=== PATIENT | female | born 1965 | race Caucasian/White ===

== ENCOUNTER 2017-09-02 09:51 | Day surgery (SDC) | payer BC ==
--- NOTE | 2017-09-02 05:09 | History and Physical Report ---
DATE: 09/01/2017. CHIEF COMPLAINT AND HISTORY OF CHIEF COMPLAINT: This patient presents with a history of an intractable lumbar radiculopathy. She had a spinal cord stimulator trial on 07/21/2017 with 75 to 85 percent pain control. Due to the failure of all therapy and the success of the trial, she presents today for implantation of a permanent system. PAST MEDICAL HISTORY: Noncontributory. PAST SURGICAL HISTORY: None listed. EMPLOYMENT STATUS: Off work. MEDICATIONS ON ADMISSION: To be provided. ALLERGIES: Sulfa. SOCIAL HISTORY: Caffeine and cigarette smoking. FAMILY HISTORY: Noncontributory. REVIEW OF SYSTEMS: The patient seems appropriate and in no acute distress. The remainder of the systems review shows glasses, headaches, reflux, degenerative arthritis. PHYSICAL EXAMINATION: General: Height and weight are unavailable. Vital Signs: Unavailable. HEENT: Within normal limits. Lungs: Clear. Heart: Regular rate and rhythm. Abdomen: Nontender. Musculoskeletal: Examination of the musculoskeletal system shows the primary pain pattern to be across the back and extending toward the hips and legs. Sensory field function in the lower extremities is intact. There are no obvious deficits. Motor functionality in the lower extremities shows no significant weakness. Ambulation: No assistive device utilized. Neurologic: Cranial nerves are intact. IMPRESSION: LUMBAR RADICULOPATHY, ICD-10 CODE M54.16 AND M54.17. PLAN: The patient is here for implantation of a permanent spinal cord stimulator after the failure of other therapies and the success of a trial. The procedure will be considered outpatient, although an overnight stay will be evaluated. The potential risks, side effects, and complications have been carefully reviewed and discussed including spinal cord injury, nerve root injury , spinal headache, and failure of the therapy. The patient has consented and understands. JOB NUMBER: [id number] cc: Ashleigh Cheatham
[~2017-09-02 09:51] MED LIST: ACETAMINOPHEN 1,000 MG/100 ML BTL IV ONE; CEFAZOLIN 2 Gram 2 GM/50 ML BAG IVPB ONE; FAMOTIDINE 20MG TABLET PO ONE; MECLIZINE 25 MG TABLET PO ONE; METOCLOPRAMIDE 10 MG TABLET PO ONE
[2017-09-02] MEDS ORDERED: FLUMAZENIL 1MG/10ML VIAL IV ONE (09:52)
[2017-09-02] MEDS ORDERED: PROPOFOL 10 MG/ML VIAL IV ONE (09:52)
[2017-09-02] MEDS ORDERED: ONDANSETRON HCL IV 4 MG/2 ML VIAL IVP ONE (09:52)
[2017-09-02] MEDS ORDERED: MIDAZOLAM HCL 2MG/2ML VIAL IV ONE (09:52)
[2017-09-02] MEDS ORDERED: CEFAZOLIN 1G VIAL IM ONE (09:52)
[2017-09-02] MEDS ORDERED: HYDROMORPHONE HCL 2 MG/ML VIAL IV ONE (09:52)
[2017-09-02] MEDS ORDERED: LIDOCAINE 2% MDV (20MG/ML) 20ML VIAL IV ONE (09:52)
[2017-09-02] MEDS ORDERED: LIDOCAINE 1% W/EPI 1:200,000 MPF 30ML SQ ONE (09:52)
[2017-09-02] MEDS ORDERED: FENTANYL PF 100MCG/2ML VIAL IV ONE (09:52)
[2017-09-02] MEDS ORDERED: BUPIVACAINE 0.5% W/EPI MPF 30 ML VIAL IVP ONE (09:52)
[2017-09-02] MEDS ORDERED: AL HYDROX/MAG HYDROX 30ML UD PO PRN (12:14)
[2017-09-02] MEDS ORDERED: DIPHENHYDRAMINE HCL IV 50 MG/ML VIAL IVP PRN ×2 (12:14)
[2017-09-02] MEDS ORDERED: OXYCODONE/APAP 10MG-325MG TABLET PO PRN ×2 (12:14)
[2017-09-02] MEDS ORDERED: SENNOSIDES/DOCUSATE SODIUM UD CAPSULE PO PRN ×2 (12:14)
[2017-09-02] MEDS ORDERED: DIPHENHYDRAMINE HCL 25 MG CAPSULE PO PRN ×2 (12:14)
[2017-09-02] MEDS ORDERED: METOCLOPRAMIDE HCL 10 MG/2 ML VIAL IVP PRN (12:14)
[2017-09-02] MEDS ORDERED: HYDROMORPHONE HCL 2 MG/ML VIAL IM PRN ×2 (12:14)
[2017-09-02] MEDS ORDERED: METOCLOPRAMIDE 10 MG TABLET PO PRN (12:14)
[2017-09-02] MEDS ORDERED: HYDROCODONE/APAP 7.5/325MG TABLET PO PRN ×2 (12:14)
[2017-09-02] MEDS ORDERED: ACETAMINOPHEN 325 MG TAB PO PRN ×2 (12:14)
[2017-09-02] MEDS ORDERED: TEMAZEPAM 15 MG CAPSULE PO PRN ×2 (12:14)
[2017-09-02] MEDS ORDERED: CEFAZOLIN 2 Gram 2 GM/50 ML BAG IVPB SCH (18:45)
--- NOTE | 2017-09-02 19:59 | Operative Note - Ferro ---
DATE OF SURGERY: 09/02/17 PREOPERATIVE DIAGNOSES: LUMBAR RADICULOPATHY, ICD-10 CODE = M54.16 AND M54.17. SURGERY: 1. FLUOROSCOPIC-GUIDED EPIDURAL ACCESS RIGHT T11-12. PLACEMENT OF SPINAL CORD STIMULATOR LEAD 1, A [employer] INFINION 16 WITH 6 ELECTRODES POSITIONED LEFT T7. 2. FLUOROSCOPIC-GUIDED EPIDURAL ACCESS RIGHT T12-L1. PLACEMENT OF SPINAL CORD STIMULATOR LEAD 2, A [employer] INFINION 16 WITH 6 ELECTRODES POSITIONED RIGHT T7. 3. COMPLEX PROGRAMMING OF LEAD 1, OVER 20 MINUTES FOLLOWED BY COMPLEX PROGRAMMING OF LEAD 2, OVER 20 MINUTES. 4. INCISION, SUBCUTANEOUS DISSECTION, AND ANCHORING OF LEAD 1 AND LEAD 2 TO SUPRASPINOUS FASCIA USING A [employer] LOCKING ANCHOR. 5. INCISION, SUBCUTANEOUS DISSECTION, AND CREATION OF SUBCUTANEOUS POUCH AT RIGHT FLANK, THE SITE PICKED BY THE PATIENT FOR THE GENERATOR. 6. TUNNELING BETWEEN POUCHES, PLACEMENT OF EXTERNAL PORTION OF LEAD 1 AND LEAD 2 INTO GENERATOR POUCH, EACH LEAD INTERFACED TO THE GENERATOR. 7. PLACEMENT OF GENERATOR POUCH SECURING TO POSTERIOR FASCIA WITH NONABSORBABLE SUTURE. PLACEMENT OF LEADS INTO POUCH, CLOSURE OF BOTH INCISIONS WITH VICRYL FOR FASCIA, RUNNING SUBCUTICULAR VICRYL FOR SKIN. DERMABOND CLOSURE. 8. COMPLEX RECOVERY ROOM PROGRAMMING INTERNAL GENERATOR HOME USE, 20 MINUTES. SURGEON: BILL SANDOVAL D.O. ANESTHESIA: LOCAL SEDATION. ANESTHESIA PROVIDER: IHSAN HARE CRNA. INDICATIONS: This patient presents with a history of intractable lumbar radiculopathy. Due to the failure of all therapy and the success of the trial, she presents today for implantation of a permanent system. SURGERY: Intravenous line, vital sign monitoring, IV sedation, prepped and draped in sterile technique. Under imaging, the epidural interspace from the right at 11-12 and 12-1 marked and infiltrated. Then using two separate Epimed needles with a [id number] to the space. At 11-12, spinal cord stimulator lead 1, a [employer] Infinion 16 with 6 electrodes positioned left at T7. With the Epidural access at 12-1, same technique spinal cord stimulator lead 2, a [employer] Infinion 16 with 6 electrodes positioned right at T7. Complex programming of lead 1 over 20 minutes followed by complex programming of lead 2 over 20 minutes resulting in patterns of stimulation across the back and into the legs and patient indicating we were in all the areas of the pain. She was given the option to implant, continue to program, or remove; she opted to implant. Questions were repeated with the same response. She was then re-sedated. The skin above and below both needles was infiltrated, incision made, and subcutaneous dissection was conducted into the supraspinous fascia. Each lead was then anchored to the supraspinous fascia with a [employer] locking anchor and nonabsorbable suture. At the right flank, a site picked by the patient for the generator, skin infiltrated, incision made, and subcutaneous dissection was conducted to form a pouch of suitable size and depth for the generator. A tunneling tool was used to carry the leads into the generator pouch and then each lead was interfaced with the generator. Antibiotic irrigation and Bovie for hemostasis. The generator was placed into the pouch and secured to the posterior fascia with nonabsorbable suture. The leads were placed into their own pouch and then both incisions were closed with Vicryl for fascia and a running subcuticular Vicryl for skin. A Dermabond closure was used to approximate the edges of both wounds. She was transported to the Recovery Room stable with no side effects from the procedure or the sedation. When fully awake and alert, complex programming of the system performed in the Recovery Room, over 20 minutes reestablishing stimulation to all the appropriate areas. She was instructed on the use of the system, provided with the information on error messaging and then prepared for discharge. DISCHARGE INSTRUCTIONS: 1. The sites will remain clean and dry. No showering or bathing in any way that would disrupt dressings. If it happens, contact the Clinic. The Dermabond will allow showing but she should not sit in water. 2. Standard medications resumed including the antibiotic, Levaquin 500 mg once a day for 14 days. 3. The office will contact the patient at home to set up an evaluation in 7-10 days to look at the sites. Until then, her activities should stay controlled. All other instructions provided, numbers to contact if problems given. She will be discharged. cc: Dr. Tara Wiggins JOB NUMBER: [id number] MTDD
[2017-09-02] MEDS ORDERED: FAMOTIDINE 20MG TABLET PO SCH (22:00)
[2017-09-02] MEDS ORDERED: SERTRALINE HCL 50 MG TABLET PO SCH (22:00)
[2017-09-02] MEDS ORDERED: 0.9 % SODIUM CHLORIDE 10ML SYR IVP SCH (22:00)
--- NOTE | 2017-09-03 22:25 | RADIOLOGY REPORT ---
EXAM: SPINE, 1 VIEW HISTORY: POST SPINAL CORD STIMULATOR IMPLANT. TECHNIQUE: Single AP view of the spine obtained beginning at approximately the level of the T3 vertebra and extending down into the mid lumbar region. COMPARISON: Thoracic spine series 07/29/17. FINDINGS: There are again two wires, presumably representing intraspinal wires , that overlie the spine at the approximately L3 level and ascend up to the approximate T7-8 interspace. These are in a slightly different position then before and correlation as to whether these are the same wires repositioned or represent new wires placed is suggested. IMPRESSION: TWO PRESUMED SPINAL WIRES EXTENDING UP TO THE APPROXIMATE LEVEL OF THE T7-8 INTERSPACE. JOB NUMBER: [id number] MTDD
== END 2017-09-02 16:55 | disposition home or self-care (01) ==
LOC: SUR 09:51 → MEDSURG 12:57 → SUR 16:55
PROVIDERS: ATTEND Pain Medicine Interventional Pain Medicine
DX: M54.16 Radiculopathy, lumbar region (principal); M54.17 Radiculopathy, lumbosacral region
CPT/HCPCS: 63685; 63650 ×2; 01936; 95972; 72020; J2405; J3010; J1170; J0690; C1820; C1883

== ENCOUNTER 2018-11-22 19:23 | Emergency (ER) | payer BC ==
[2018-11-22] MEDS ORDERED: HYDROCODONE/APAP 5/325MG TABLET PO ONE ×2 (19:46→21:05)
[2018-11-22] MEDS ORDERED: HYDROMORPHONE HCL 2 MG/ML VIAL IM ONE (19:50)
[2018-11-22] MEDS ORDERED: PROMETHAZINE HCL 25 MG/ML VIAL IM ONE (19:51)
--- NOTE | 2018-11-22 20:02 | Emergency Department Record ---
History of Present Illness - General Chief Complaint: Fall Injury Stated Complaint: FALL DOWN 8 STEPS LT ARM/SHOULDER INJURY Time Seen by Provider: 11/22/18 19:41 Source: Patient Mode of Arrival: Ambulatory Limitations: No limitations - History of Present Illness Initial Comments: pt fell down 8 steps injuring her l shoulder. she denies hitting her head or hurting her neck Complaint: Fall Onset/Timin -: Minutes(s) Fall From: Down stairs (#) When Fall Occurred: Just prior to arrival Fall Witnessed: No Place Fall Occurred: Home Loss of Consciousness: None Prolonged Down Time?: No Symptoms Prior to Fall: None Location: Other Location - Extremities: Left: Shoulder Severity: Moderate Severity scale (1-10): 8 Quality: Aching - Elizabeth Coma Scale Eye Response: (4) Open spontaneously Motor Response: (6) Obeys commands Verbal Response: (5) Oriented Elizabeth Total: 15 - Related Data Home Medications Medication Instructions Recorded Confirmed Last Taken Aripiprazole 5 mg PO DAILY 11/22/18 11/22/18 Unknown Ranitidine HCl 150 mg PO BID 11/22/18 11/22/18 Unknown Sertraline HCl [Zoloft] 100 mg PO DAILY 11/22/18 11/22/18 Unknown Previous Rx's Medication Instructions Recorded Hydrocodone/Acetaminophen [[place] 1 each PO Q6HR #10 tablet 11/22/18 5-325 Tablet] Allergies Allergy/AdvReac Type Severity Reaction Status Date / Time Sulfa (Sulfonamide Allergy Intermediate RASH Verified 11/22/18 19:30 Antibiotics) Travel Screening - Travel/Exposure Within Last 30 Days Have you traveled within the last 30 days?: No - Travel/Exposure Within Last Year Have you traveled outside the [place] in the last year?: No - Travel Symptoms Symptom Screening: None Review of Systems Reviewed: No additional complaints except as noted below Constitutional: Reports: As per HPI. Denies: Chills, Fever, Malaise, Night sweats, Weakness, Weight change Eyes: Reports: As per HPI. Denies: Eye discharge, Eye pain, Photophobia, Vision change ENT: Reports: As per HPI. Denies: Congestion, Dental pain, Ear pain, Epistaxis, Hearing loss, Throat pain Respiratory: Reports: As per HPI. Denies: Cough, Dyspnea, Hemoptysis, Stridor, Wheezes Cardiovascular: Reports: As per HPI. Denies: Arrhythmia, Chest pain, Dyspnea on exertion, Edema, Murmurs, Orthopnea, Palpitations, Paroxysmal nocturnal dyspnea, Rheumatic Fever, Syncope Endocrine: Reports: As per HPI. Denies: Fatigue, Heat or cold intolerance, Polydipsia, Polyuria Gastrointestinal: Reports: As per HPI. Denies: Abdominal pain, Constipation, Diarrhea, Hematemesis, Hematochezia, Melena, Nausea, Vomiting Genitourinary: Reports: As per HPI. Denies: Abnormal menses, Discharge, Dyspareunia, Dysuria, Frequency, Hematuria, Incontinence, Retention, Urgency Musculoskeletal: Reports: As per HPI. Denies: Arthralgia, Back pain, Gout, Joint swelling, Myalgia, Neck pain Skin: Reports: As per HPI. Denies: Bruising, Change in color, Change in hair/nails, Lesions, Pruritus, Rash Neurological: Reports: As per HPI. Denies: Abnormal gait, Confusion, Headache, Numbness, Paresthesias, Seizure, Tingling, Tremors, Vertigo, Weakness Psychiatric: Reports: As per HPI. Denies: Anxiety, Auditory hallucinations, Depression, Homicidal thoughts, Suicidal thoughts, Visual hallucinations Hematological/Lymphatic: Reports: As per HPI. Denies: Anemia, Blood Clots, Easy bleeding, Easy bruising, Swollen glands Past Medical History - SOCIAL HISTORY Smoking Status: Heavy tobacco smoker (>10/day) Alcohol Use: Occasional Drug Use: Heavy Drug Use Detail:: Marijuana - RESPIRATORY Hx Respiratory Disorders: Yes Hx Bronchitis: Yes (yrs ago) - CARDIOVASCULAR Hx Cardio Disorders: No Comment:: d/t back pain - NEURO Hx Neuro Disorders: No - GI Hx GI Disorders: Yes Hx Reflux: Yes Comment:: umbilical hernia - Hx Genitourinary Disorders: No Comment:: s/p hyst - ENDOCRINE Hx Endocrine Disorders: No - MUSCULOSKELETAL Hx Musculoskeletal Disorders: Yes Hx Arthritis: Yes - PSYCH Hx Psych Problems: Yes Hx Anxiety: Yes Hx Depression: Yes - HEMATOLOGY/ONCOLOGY Hx Hematology/Oncology Disorders: Yes Hx Cancer: Yes (bcc) Family Medical History Any Significant Family History?: No Hx Alcohol Use: Brother/Sister Hx Anxiety: Brother/Sister Hx Cancer: Father Hx Depression: Brother/Sister Physical Exam - General General Appearance: Alert, Oriented x3, Cooperative, Mild distress - Head Head exam: Normal inspection - Eye Eye exam: Normal appearance, PERRL, EOMI Pupils: Normal accommodation - ENT ENT exam: Normal exam, Mucous membranes moist, Normal external ear exam, Normal orophraynx Ear exam: Normal external inspection. negative: External canal tenderness Nasal Exam: Normal inspection. negative: Discharge, Sinus tenderness Mouth exam: Normal external inspection, Tongue normal Teeth exam: Normal inspection. negative: Dental caries Throat exam: Normal inspection. negative: Tonsillar erythema, Tonsillar exudate - Neck Neck exam: Normal inspection, Full ROM. negative: Tenderness - Respiratory Respiratory exam: Normal lung sounds bilaterally. negative: Respiratory distress - Cardiovascular Cardiovascular Exam: Regular rate, Normal rhythm, Normal heart sounds - GI/Abdominal GI/Abdominal exam: Soft, Normal bowel sounds. negative: Tenderness - Rectal Rectal exam: Deferred - exam: Deferred - Extremities Extremities exam: Normal capillary refill, Tenderness (l shoulder). negative: Full ROM - Back Back exam: Reports: Normal inspection, Full ROM. Denies: Muscle spasm, Rash noted, Tenderness - Neurological Neurological exam: Alert, CN II-XII intact, Normal gait, Oriented X3 - Psychiatric Psychiatric exam: Normal affect, Normal mood - Skin Skin exam: Dry, Intact, Normal color, Warm Course Vital Signs 11/22/18 19:34 Temperature 98.6 F Pulse Rate 72 Respiratory 22 Rate Blood Pressure 116/90 Pulse Ox 98 Disposition Disposition: Discharge Clinical Impression: Fracture of humeral head Qualifiers: Encounter type: initial encounter Fracture type: closed Laterality: left Qualified Code(s): S42.292A - Other displaced fracture of upper end of left humerus, initial encounter for closed fracture Disposition: Home, Self-Care Condition: (1) Good Instructions: Fall Prevention for Older Adults (ED), Proximal Humerus Fracture (ED) Additional Instructions: follow up with dr nguyen. wear sling. ice and elevate. motrin for pain Prescriptions: Hydrocodone/Acetaminophen [[place] 5-325 Tablet] 1 each PO Q6HR #10 tablet Referrals: Jame Nguyen [DOCTOR OF OSTEOPATH] - [facility] [Provider Group] Forms: Patient Portal Access Quality - Quality Measures Quality Measures: N/A - Blood Pressure Screening Does Patient Have Any of the Following: No Blood Pressure Classification: Hypertensive Reading Systolic Measurement: 116 Diastolic Measurement: 90 Screening for High Blood Pressure: < Pre-Hypertensive BP, F/U Documented > [[id number]] Pre-Hypertensive Follow-up Interventions: Follow-up with rescreen every year.
== END 2018-11-22 21:28 | disposition home or self-care (01) ==
LOC: ER 19:23
DX: S42.292A Other displaced fracture of upper end of left humerus, initial encounter for closed fracture (principal); W10.9XXA Fall (on) (from) unspecified stairs and steps, initial encounter; Y92.009 Unspecified place in unspecified non-institutional (private) residence as the place of occurrence of the external cause; F17.210 Nicotine dependence, cigarettes, uncomplicated
CPT/HCPCS: 96372; 99284; J2550